=== PATIENT | female | born 1985 | race Asian ===

== ENCOUNTER 2020-11-05 09:55 | Inpatient (IN) | payer MEDICAID, OTHER ==
[~2020-11-05] VITALS: Ht 167.6 cm; Wt 66.0 kg
[2020-11-05 10:40] VITALS: BP 94/53
[2020-11-05] MEDS: LACTATED RINGERS 1,000 ML IV SCH ×3 (10:40→16:43)
[2020-11-05 10:52] LABS: BASOPHILS % (AUTO) 0 % (0-1); EOSINOPHILS % (AUTO) 1 % (1-7); LYMPHOCYTES % (AUTO) 7 % (22-44); MEAN CORPUSCULAR HEMOGLOBIN 32.7 pg (27.0-34.8); MEAN CORPUSCULAR HGB CONC 34.1 g/dL (32.4-35.8); MEAN PLATELET VOLUME 9.4 fL (7.4-10.4); MONOCYTES % (AUTO) 5 % (2-9); NEUTROPHILS % (AUTO) 87 % (42-75); PLATELET COUNT 148 x10^3/uL (130-400); RED BLOOD COUNT 3.48 x10^6/uL (3.82-5.3); RED CELL DISTRIBUTION WIDTH 12.2 % (9.6-15.2)
[2020-11-05 11:12] LABS: MD NO
[2020-11-05] MEDS ORDERED: TERBUTALINE 1 MG/ML, 1ML ONE (11:20)
[2020-11-05] MEDS ORDERED: TERBUTALINE 1 MG/ML, 1ML SQ ONE (11:30)
[2020-11-05 11:35] LABS: AMPHETAMINE SCREEN, URINE Negative (Negative); BARBITURATE SCREEN, URINE Negative (Negative); BENZODIAZEPINE SCREEN, URINE Negative (Negative); CANNABINOID SCREEN, URINE Negative (Negative); COCAINE SCREEN, URINE Negative (Negative); METHADONE SCREEN, URINE Negative (Negative); OPIATE SCREEN, URINE Negative (Negative)
[2020-11-05] MEDS ORDERED: INDOMETHACIN 50 MG CAPSULE ONE (11:45)
[2020-11-05 11:46] LABS: MICROSCOPIC INDICATED
[2020-11-05] MEDS ORDERED: INDOMETHACIN 50 MG CAPSULE PO ONE (12:00)
[2020-11-05] MEDS ORDERED: LACTATED RINGERS 500 ML IVBOLUS ONE (12:00)
[2020-11-05 12:36] LABS: INTERNATIONAL NORMALIZED RATIO 0.94 (0.93-1.1); PROTHROMBIN TIME 10.1 Seconds (9.6-11.5)
[2020-11-05 12:41] LABS: D-DIMER (DIC) 0.66 ug/mlFEU (0.00-0.52)
[2020-11-05] MEDS ORDERED: AMPICILLIN 2 GM in SODIUM CHLORIDE 0.9% 100 ML IV SCH (13:00)
[2020-11-05] MEDS ORDERED: FENTANYL PF 100 MCG/2ML ONE ×2 (15:45→16:44)
[2020-11-05] MEDS: FENTANYL PF 100 MCG/2ML IV PRN ×3 (15:47→16:13)
[2020-11-05] MEDS ORDERED: OXYTOCIN 30U/ 0.9% NaCL 500ML 0 ML ONE (15:54)
[2020-11-05] MEDS ORDERED: FENTANYL PF 100 MCG/2ML IVPush PRN (16:00)
[2020-11-05] MEDS ORDERED: ACETAMINOPHEN 325 MG TABLET PO PRN (16:00)
[2020-11-05] MEDS ORDERED: SODIUM CITRATE/CITRIC ACID 15 ML UDC ONE (16:32)
[2020-11-05] MEDS ORDERED: METOCLOPRAMIDE 5 MG/ML, 2ML ONE (16:32)
[2020-11-05] MEDS ORDERED: METOCLOPRAMIDE 5 MG/ML, 2ML IVPush ONE (17:00)
[2020-11-05] MEDS ORDERED: SODIUM CITRATE/CITRIC ACID 30 ML UDC PO ONE (17:00)
[2020-11-05] MEDS ORDERED: MIDAZOLAM 1 MG/ML, 2ML ONE (17:03)
[2020-11-05] MEDS ORDERED: ONDANSETRON 2MG/ML, 2ML ONE (17:27)
[2020-11-05] MEDS ORDERED: CEFAZOLIN 1,000 MG ONE (17:27)
[2020-11-05] MEDS ORDERED: INDOMETHACIN 25 MG CAPSULE PO SCH (18:00)
[2020-11-05] MEDS ORDERED: METHYLERGONOVINE 0.2 MG/ML IM ONE (18:30)
[2020-11-05] MEDS ORDERED: SERT50TA PO (18:34)
[2020-11-05 19:33] VITALS: BP 96/57
[2020-11-05] MEDS ORDERED: OXYcodone/APAP 5/325MG TABLET PO ONE (20:05)
[2020-11-05] MEDS ORDERED: OXYcodone/APAP 5/325MG TABLET ONE (20:07)
[2020-11-05] MEDS ORDERED: IBUPROFEN 800 MG TABLET ONE (20:49)
[2020-11-05] MEDS ORDERED: IBUPROFEN 800 MG TABLET PO PRN (20:50)
[2020-11-05] MEDS ORDERED: DOCUSATE 100 MG CAPSULE PO SCH (21:00)
[2020-11-06] MEDS ORDERED: PRENATAL VIT/IRON/FA 1 EACH TABLET PO SCH (09:00)
[2020-11-06] MEDS ORDERED: SERTRALINE 50MG TABLET PO SCH (09:00)
== END 2020-11-06 07:38 | disposition home or self-care (01) | DRG 818 ==
LOC: LDOP 09:55 → LDIP 11:41
PROVIDERS: ADMIT Obstetrics & Gynecology; ATTEND Obstetrics & Gynecology
PROC: 10D17ZZ Extraction of Products of Conception, Retained, Via Natural or Artificial Opening (ICD-10-PCS; principal; 2020-11-05)
DX: O60.02 Preterm labor without delivery, second trimester (principal); O72.2 Delayed and secondary postpartum hemorrhage; F32.9 Major depressive disorder, single episode, unspecified; O99.344 Other mental disorders complicating childbirth; Z20.822 Contact with and (suspected) exposure to COVID-19; Z37.1 Single stillbirth; Z3A.22 22 weeks gestation of pregnancy; Z82.49 Family history of ischemic heart disease and other diseases of the circulatory system
CPT/HCPCS: 36415; 76815; 80307; 81001; 85025; 85049; 85379; 85384; 85610; 85730; 86592; 86850; 86900; 87081; 87491; 87591; 87635; 88305; G0378; J0290; J0690; J2250; J2405; J3010; J7120; J2210; J2765; J3105